=== PATIENT | male | born 1955 | race Caucasian/White ===

== ENCOUNTER 2023-12-24 09:01 | Emergency (ER) | payer MEDICARE, OTHER ==
[~2023-12-24] VITALS: Ht 182.9 cm; Wt 90.9 kg
[~2023-12-24 09:01] MED LIST: NOCURR
[2023-12-24 09:07] VITALS: BP 125/68; PULSE 113; RESP 22; TEMP 98.3; O2SAT 97
== END 2023-12-24 11:26 | disposition home or self-care (01) ==
LOC: EMS 09:03
DX: S00.03XA Contusion of scalp, initial encounter (principal); S50.01XA Contusion of right elbow, initial encounter; F31.9 Bipolar disorder, unspecified; F41.9 Anxiety disorder, unspecified; F15.90 Other stimulant use, unspecified, uncomplicated; Y08.89XA Assault by other specified means, initial encounter; Y93.89 Activity, other specified; Y92.89 Other specified places as the place of occurrence of the external cause; Y99.8 Other external cause status
CPT/HCPCS: 70450; 99284

== ENCOUNTER 2024-01-07 10:45 | Inpatient (IN) | payer MEDICARE, OTHER ==
[~2024-01-07] VITALS: Ht 172.7 cm; Wt 80.9 kg
[2024-01-07 11:31] LABS: BASOPHILS % (AUTO) 0.4 % (0.0-2.0); EOSINOPHILS % (AUTO) 0.5 % (1.0-6.0); HEMATOCRIT 45.1 % (41-53); HEMOGLOBIN 14.9 g/dL (13.5-17.5); LYMPHOCYTES # (AUTO) 3.6 K/uL (1.0-4.8); LYMPHOCYTES % (AUTO) 38.1 % (22.0-44.0); MEAN CORPUSCULAR HEMOGLOBIN 30.6 pg (26.0-34.0); MEAN CORPUSCULAR HGB CONC 33.1 G/dL (31.0-37.0); MEAN CORPUSCULAR VOLUME 92 fL (80-100); MONOCYTES % (AUTO) 11.1 % (2.0-9.0); NEUTROPHILS # (AUTO) 4.7 K/uL (1.8-7.7); NEUTROPHILS % (AUTO) 49.9 % (40.0-70.0); PLATELET COUNT (AUTO) 189 K/uL (150-450); RED BLOOD CELL COUNT(AUTO) 4.89 MIL/uL (4.50-5.90); RED CELL DISTRIBUTION WIDTH 14.3 % (11.5-14.5); WHITE BLOOD COUNT (AUTO) 9.4 K/uL (4.5-11.0)
[2024-01-07 11:48] LABS: PH,URINE DRUG SCREEN 5.5 (5.0-8.0)
[2024-01-07 12:04] LABS: ANION GAP 14 mmol/L (8-16); CALCIUM, TOTAL 7.8 mg/dL (8.8-10.5); CARBON DIOXIDE 25 mmol/L (22-29); CHLORIDE 97 mmol/L (98-107); CREATININE 1.37 mg/dL (0.60-1.30); GLOMERULAR FILTR. RATE CALC 52 mL/min (>60); GLUCOSE,RANDOM 230 mg/dL (70-110); POTASSIUM 3.1 mmol/L (3.5-5.1); SODIUM SERUM 136 mmol/L (136-145); UREA NITROGEN, BLOOD 25 mg/dL (7-18)
[2024-01-07 12:07] LABS: ALCOHOL, URINE DRUG SCREEN NEGATIVE (NEGATIVE); AMPHET/METH SCREEN,URINE POSITIVE (NEGATIVE); BARBITURATE SCREEN, URINE NEGATIVE (NEGATIVE); BENZODIAZEPINES SCREEN,URINE NEGATIVE (NEGATIVE); CANNABINOID SCREEN,URINE NEGATIVE (NEGATIVE); COCAINE SCREEN,URINE NEGATIVE (NEGATIVE); METHADONE SCREEN, URINE NEGATIVE (NEGATIVE); OPIATE SCREEN,URINE NEGATIVE (NEGATIVE); PHENCYCLIDINE SCREEN,URINE NEGATIVE (NEGATIVE)
[2024-01-07 12:11] LABS: ALCOHOL, BLOOD (SERUM) < 3 mg/dL (0-10)
[2024-01-07] MEDS: *CLINICAL-LEVOFLOXACIN IVPB DOSING CLINICAL ONE (12:43)
[2024-01-07] MEDS ORDERED: BISACODYL 10 MG RECTAL RECTAL SUPPOSITORY PR PRN (12:45)
[2024-01-07] MEDS ORDERED: POTASSIUM CHL 10 MEQ/WATER 50 ML IV PRN (12:45)
[2024-01-07] MEDS ORDERED: ONDANSETRON HCL 4 MG/2 ML VIAL IVP PRN (12:45)
[2024-01-07] MEDS: SODIUM CHLORIDE 0.9% 1,000 ML IV ONE (12:53)
[2024-01-07] MEDS: LEVOFLOXACIN 750 MG/D5% WATER 150 ML IV SCH (12:57)
[2024-01-07 13:12] LABS: APPEARANCE,URINE HAZY (CLEAR); BILIRUBIN,URINE NEGATIVE (NEGATIVE); COLOR,URINE YELLOW (YELLOW); GLUCOSE, URINE (UA) NEGATIVE (NEGATIVE); KETONES,URINE NEGATIVE (NEGATIVE); LEUKOCYTE ESTERASE ,URINE NEGATIVE (NEGATIVE); NITRATE,URINE NEGATIVE (NEGATIVE); OCCULT BLOOD,URINE MODERATE (NEGATIVE); PH,URINE 5.5 (5.0-8.0); PROTEIN,URINE 100-200,SEE CONFIRM mg/dL (NEGATIVE); SPECIFIC GRAVITIY, URINE 1.034 (1.003-1.030)
[2024-01-07 13:27] LABS: BACTERIA,URINE Few /HPF (None Seen); SQUAMOUS EPITHELIAL CELL,UR Few /LPF (None Seen); SULFOSALICYLIC ACID,URINE 2+ (Negative)
[2024-01-07] MEDS: POTASSIUM CHLORIDE 20 MEQ ER TABLET PO PRN (15:06)
[2024-01-07 15:54] VITALS: BP 115/60; PULSE 92; RESP 19; TEMP 97.8; O2SAT 93
[2024-01-07] MEDS: HEPARIN SODIUM,PORCINE 5,000 UNITS/ML VIAL SQ SCH (16:39)
[2024-01-07] MEDS ORDERED: DEXTROSE 50%-WATER 25 GM/50 ML SYRINGE IVP PRN (17:45)
[2024-01-07 20:29] VITALS: BP 129/67; PULSE 104; RESP 18; TEMP 98.5; O2SAT 90
[2024-01-07] MEDS: INSULIN LISPRO 100 UNITS/ML SQ PRN (20:51)
[2024-01-08] MEDS: ACETAMINOPHEN 325 MG TABLET PO PRN (00:15)
[2024-01-08 00:56] VITALS: BP 110/63; PULSE 97; RESP 20; TEMP 99.7; O2SAT 93
[2024-01-08 06:58] VITALS: BP 108/61; PULSE 92; RESP 18; TEMP 98.6; O2SAT 93
[2024-01-08] MEDS: PANTOPRAZOLE SODIUM 40 MG/VIAL IVP SCH (08:34)
[2024-01-08 08:56] VITALS: BP 117/64; PULSE 92; RESP 18; TEMP 99.1; O2SAT 93
[2024-01-08 12:26] VITALS: BP 103/54; PULSE 82; RESP 18; TEMP 98.4; O2SAT 97
[2024-01-08] MEDS ORDERED: SODIUM CHLORIDE 0.9% 500 ML IV ONE (13:14)
[2024-01-08 17:22] VITALS: BP 122/62; PULSE 93; RESP 18; TEMP 101; O2SAT 93
[2024-01-08 20:42] VITALS: BP 112/60; PULSE 91; RESP 18; TEMP 99.8; O2SAT 95
[2024-01-09 00:13] VITALS: BP 115/75; PULSE 94; RESP 19; TEMP 100; O2SAT 94
[2024-01-09 03:41] VITALS: BP 122/69; PULSE 86; RESP 18; TEMP 99.9; O2SAT 95
[2024-01-09 06:30] VITALS: TEMP 98.4
[2024-01-09 07:59] VITALS: BP 105/48; PULSE 74; RESP 19; TEMP 99; O2SAT 100
[2024-01-09 11:08] VITALS: BP 112/49; PULSE 77; RESP 19; TEMP 99; O2SAT 97
[2024-01-09 15:09] VITALS: BP 99/38; PULSE 65; RESP 20; TEMP 99.6; O2SAT 99
[2024-01-10 06:16] LABS: GLUCOMETER DEV NAME(LOC) 5N.2C; GLUCOSE,POINT OF CARE 108 MG/DL (70-110)
== END 2024-01-09 17:20 | disposition left against medical advice (07) | DRG 917 ==
LOC: EMS 10:45 → EDH 14:01 → 5S 15:30
PROVIDERS: ADMIT Internal Medicine; ATTEND Internal Medicine
DX: T40.411A Poisoning by fentanyl or fentanyl analogs, accidental (unintentional), initial encounter (principal); G92.9 Unspecified toxic encephalopathy; J96.01 Acute respiratory failure with hypoxia; J69.0 Pneumonitis due to inhalation of food and vomit; N17.9 Acute kidney failure, unspecified; E87.6 Hypokalemia; E11.9 Type 2 diabetes mellitus without complications; E83.51 Hypocalcemia; Z79.899 Other long term (current) drug therapy; F31.9 Bipolar disorder, unspecified; F41.9 Anxiety disorder, unspecified; Z71.6 Tobacco abuse counseling; Y92.89 Other specified places as the place of occurrence of the external cause; F11.10 Opioid abuse, uncomplicated; F15.10 Other stimulant abuse, uncomplicated
CPT/HCPCS: 71045; 80048; 80307; 81001; 81002; 82962; 84132; 85025; 92610; 99285; C9113; G0378; G0480; J1644; J1956; J7030; J7040; 36415-L1; 36415-TC; J2471